=== PATIENT | male | born 1960 | race Caucasian/White ===

== ENCOUNTER 2017-02-07 07:06 | Emergency (ER) | payer BC ==
[~2017-02-07] VITALS: Ht 190.5 cm; Wt 174.1 kg
[2017-02-07 07:08] VITALS: Ht 190.5 cm; Wt 174.1 kg
--- OUTSIDE RECORDS SUMMARY | 2017-02-07 07:10 | XMS REPORT ---
Author Author Quoc Raymond Organization 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
--- OUTSIDE RECORDS SUMMARY | 2017-02-07 07:10 | XMS REPORT | Referral Summary ---
Author Author [facility] Organization [facility] Address Unknown Phone Unavailable Care Team Providers Care Corner Cutter Name Role Phone Charlie Lorenzo Primary Care Physician [phone] Encounter VC Date(s): 08/24/16 - 08/25/[address] [facility] [address] [place] [address] Discharge Disposition: 01-Home or Self Care Attending Physician: Quoc Raymond MD Admitting Physician: Quoc Raymond MD Vital Signs Most recent to 1 oldest [Reference Range]: Temperature Oral 37 degC [35.8-37.3 degC] (08/25/16 12:00 PM) Peripheral Pulse 72 bpm Rate [60-100 bpm] (08/25/16 12:00 PM) Heart Rate Monitored 66 bpm [60-100 bpm] (08/24/16 9:10 PM) Respiratory Rate 18 br/min [14-20 br/min] (08/25/16 12:00 PM) Blood Pressure 147/80 mmHg [90-140/60-90 mmHg] *HI* (08/25/16 12:00 PM) Mean Arterial 80 mmHg Pressure, Cuff (08/25/16 1:32 AM) SpO2 95 % (08/25/16 12:00 PM) Problem List Condition Effective Dates Status Health Status Informant Cardiac Active disorder(Confirmed)1 Diabetes(Confirmed) Active patient Hypertension(Confirm Active patient ed) 1Problem added automatically by system based on initiation of Cardiac Output/ Ineffective Cardiac Perfusion Plan of Care Allergies, Adverse Reactions, Alerts No Known Allergies Medications amLODIPine 10 mg oral tablet 10 mg 1 tabs, Oral, Daily, 0 Refill(s) Start Date: 08/24/16 Status: Ordered aspirin 81 mg oral tablet 81 mg 1 tabs, Oral, Daily, 0 Refill(s) Start Date: 08/25/16 Status: Ordered atenolol 50 mg oral tablet 50 mg 1 tabs, Oral, Daily, # 30 tabs, 5 Refill(s) Start Date: 08/25/16 Status: Ordered citalopram 20 mg oral tablet 20 mg 1 tabs, Oral, Bedtime (once a day), 0 Refill(s) Start Date: 08/25/16 Status: Ordered glyBURIDE 5 mg oral tablet 10 mg 2 tabs, Oral, BID, 0 Refill(s) Start Date: 08/25/16 Status: Ordered Levemir FlexTouch 100 units/mL subcutaneous solution 32 units, SubCutaneous, Bedtime (once a day), 0 Refill(s) Start Date: 08/24/16 Status: Ordered Lipitor 20 mg oral tablet 20 mg 1 tabs, Oral, Bedtime (once a day), # 30 tabs, 3 Refill(s) Start Date: 08/25/16 Status: Ordered lisinopril 20 mg oral tablet 20 mg 1 tabs, Oral, BID, 0 Refill(s) Start Date: 08/24/16 Status: Ordered Maxzide-25 oral tablet 1 tabs, Oral, Daily, # 30 tabs, 5 Refill(s) Start Date: 08/25/16 Status: Ordered metFORMIN extended release 1,000 mg, Oral, BID, 0 Refill(s) Start Date: 08/24/16 Status: Ordered multivitamin CATALYN multivitamin CATALYN, See Instructions, 3 tabs once a day, 0 Refill(s) Start Date: 08/24/16 Status: Ordered nitroglycerin 0.4 mg sublingual tablet 0.4 mg 1 tabs, SubLingual, q5min, as needed for chest pain, # 25 tabs, 3 Refill( s) Start Date: 08/25/16 Status: Ordered NovoLOG FlexPen 8 units, SubCutaneous, TIDAC, 0 to 8 units depend on meals, 0 Refill(s) Start Date: 08/24/16 Status: Ordered pioglitazone 15 mg oral tablet 15 mg 1 tabs, Oral, Daily, 0 Refill(s) Start Date: 08/24/16 Status: Ordered Results Hematology Most recent to 1 oldest [Reference Range]: WBC [4.8-10.8 10.8 10*3/uL 10*3/uL] (08/24/16 1:32 PM) RBC [4.60-6.20] 4.35 *LOW* (08/24/16 1:32 PM) Hgb [14.0-18.0 13.1 gm/dL gm/dL] *LOW* (08/24/16 1:32 PM) Hct [42.0-52.0 %] 38.1 % *LOW* (08/24/16 1:32 PM) MCV [82.0-99.0 fL] 87.6 fL (08/24/16 1:32 PM) MCH [27.0-32.0 pg] 30.1 pg (08/24/16 1:32 PM) MCHC [32.0-36.0 34.4 gm/dL gm/dL] (08/24/16 1:32 PM) RDW [11.5-14.5 %] 13.0 % (08/24/16 1:32 PM) Platelet [150-400 382 10*3/uL 10*3/uL] (08/24/16 1:32 PM) MPV [9.4-12.3 fL] 9.8 fL (08/24/16 1:32 PM) Immature 0.3 % Granulocytes (08/24/16 1:32 PM) [0.0-1.0 %] Neutrophils [51-75 66 % %] (08/24/16 1:32 PM) Lymphocytes [20-46 25 % %] (08/24/16 1:32 PM) Monocytes [4-11 %] 7 % (08/24/16 1:32 PM) Eosinophils [0-4 %] 2 % (08/24/16 1:32 PM) Basophils [0-2 %] 0 % (08/24/16 1:32 PM) Neutro Absolute 7.09 10*3 [1.90-7.00 10*3] *HI* (08/24/16 1:32 PM) Lymph Absolute 2.68 10*3 [0.80-3.30 10*3] (08/24/16 1:32 PM) [place] Absolute 0.71 10*3 [0.30-1.00 10*3] (08/24/16 1:32 PM) Eos Absolute 0.25 10*3 [0.00-0.50 10*3] (08/24/16 1:32 PM) Baso Absolute 0.04 10*3 [0.00-0.20 10*3] (08/24/16 1:32 PM) Nucleated RBC 0.0 /100 WBC Automated [0 /100 (08/24/16 1:32 PM) WBC] Coagulation Most recent to 1 oldest [Reference Range]: INR [0.9-1.2] 1.0 (08/24/16 1:32 PM) Chemistry Most recent to 1 oldest [Reference Range]: Sodium Lvl [136-144 140 mEq/L mEq/L] (08/24/16 1:32 PM) Potassium Lvl 3.7 mEq/L [3.6-5.1 mEq/L] (08/24/16 1:32 PM) Chloride [99-109 103 mEq/L mEq/L] (08/24/16 1:32 PM) CO2 [22-32 mEq/L] 28 mEq/L (08/24/16 1:32 PM) AGAP [3-20] 9 (08/24/16 1:32 PM) BUN [4-20 mg/dL] 10 mg/dL (08/24/16 1:32 PM) Glucose Lvl [70-100 111 mg/dL mg/dL] *HI* (08/24/16 1:32 PM) Creatinine Lvl 0.90 mg/dL [0.64-1.27 mg/dL] (08/24/16 1:32 PM) eGFR [>60] >60 1 (08/24/16 1:32 PM) Calcium Lvl 8.7 mg/dL [8.6-10.0 mg/dL] (08/24/16 1:32 PM) Albumin Lvl [3.5-4.8 3.3 gm/dL gm/dL] *LOW* (08/24/16 1:32 PM) Total Protein 6.4 gm/dL [6.1-7.9 gm/dL] (08/24/16 1:32 PM) Globulin [1.9-4.3 3.1 gm/dL gm/dL] (08/24/16 1:32 PM) ALT [17-63 U/L] 18 U/L (08/24/16 1:32 PM) AST [15-41 U/L] 23 U/L (08/24/16 1:32 PM) Alk Phos [26-104 70 U/L U/L] (08/24/16 1:32 PM) Bili Total [0.2-1.2 0.5 mg/dL 2 mg/dL] (08/24/16 1:32 PM) Troponin [<0.06 <0.05 ng/mL ng/mL] (08/24/16 7:15 PM) Lipase Lvl [8-48 17 U/L U/L] (08/24/16 1:32 PM) Blood Glucose, 89 mg/dL Capillary [70-100 (08/25/16 2:57 PM) mg/dL] Chol [0-200 mg/dL] 166 mg/dL (08/25/16 6:13 AM) Trig [0-150 mg/dL] 228 mg/dL *HI* (08/25/16 6:13 AM) HDL [>40 mg/dL] 30 mg/dL *ABN* (08/25/16 6:13 AM) LDL [0-100 mg/dL] 90 mg/dL (08/25/16 6:13 AM) VLDL Cholesterol 46 mg/dL [0-30 mg/dL] *HI* (08/25/16 6:13 AM) Cardiac Risk 5.5 [0.0-5.7] (08/25/16 6:13 AM) 1Result Comment: Multiply eGFR results by 1.21 for race. 2Result Comment: Naproxen, specifically the metabolite O-desmethylnaproxen, may cause spurious elevation in Total Bilirubin levels. Immunizations No data available for this section Procedures Procedure Date Related Diagnosis Body Site Catheterization Left Heart with Coronary 08/24/16 Angiography (Right, Groin)1 1auto-populated from documented surgical case Social History Social History Type Response Smoking Status Never smoker Assessment and Plan No data available for this section
--- OUTSIDE RECORDS SUMMARY | 2017-02-07 07:10 | XMS REPORT ---
Author Author [facility]. Organization [facility] Address [address] [place] [address] Phone [phone] Summary purpose CCDA Sent to NYE Chief Complaint and Reason for Visit No authorized Reason for Visit (Admitting Diagnosis) is available for this visit. Problem list No authorized problems tracked for continuity of care are available for this visit. Encounters No authorized problems tracked for encounter diagnoses are available for this visit. Medications No medications recorded for this patient visit Allergies, adverse reactions, alerts No allergy information is available for this patient. Immunizations No immunizations recorded for this patient visit Relevant diagnostic tests and/or laboratory data RESULTS Chemistry Group [id number] Result Normal Range Units Sodium 138 134-145 mmol/L Potassium 5.0 3.6-5.0 mmol/L Chloride 100 98-107 mmol/L CO2 26 22-30 mmol/L Glucose H 226 75-110 mg/dl BUN 20 9-20 mg/dl Creatinine L .74 0.8-1.7 mg/dl Calcium 8.7 8.4-10.2 mg/dl History of procedures No procedures recorded for this patient visit. Functional status No functional or cognitive status observations are available for this visit. Vital signs No authorized vital signs are available for this visit. Social history No Social History or smoking status observations were recorded for this visit. ( Unknown if ever smoked.) Treatment Plan No treatment plan text is available for this visit. Hospital discharge instructions No discharge instruction text is available for this visit.
--- OUTSIDE RECORDS SUMMARY | 2017-02-07 07:11 | XMS REPORT ---
Author Author [facility] Organization [facility] Address [address] [place] [address] Phone [phone] Summary purpose CCDA Sent to PRE Chief Complaint and Reason for Visit No [...] tests and/or laboratory data RESULTS Chemistry Group [id number]:00 Result Normal Range Units Sodium 141 134-145 mmol/L Potassium HC 5.9 3.6-5.0 mmol/L SAMPLE HEMOLYZED 1+.RESULT CALLED TO NILS AT 17:00 11-30-16 BY LAD Chloride H 108 98-107 mmol/L CO2 24 22-30 mmol/L Glucose 85 75-110 mg/dl BUN H 36 9-20 mg/dl Creatinine 1.40 0.8-1.7 mg/dl eGFR 52 ml/min. Total Protein 7.2 6.3-8.2 g/dl Albumin 3.7 3.5-5.0 g/dl Calcium 9.6 8.4-10.2 mg/dl Alk Phos 85 38-126 U/L AST 17 14-36 U/L ALT 24 11-66 U/L T Bili .6 0.2-1.3 mg/dl A/G Ratio 1.1 Ratio Cholesterol L 129 130-170 mg/dl Triglyceride 124 < 200 mg/dl HDL L 37 40-60 mg/dl LDL Levy 67 30-100 mg/dl VLDL 25 0 Chol/HDL 3.46 0.00-5.00 Ratio History of procedures Procedure Code Code Type Description Date Performed Performing Physician 15523 CPT-4 COMPREHEN METABOLIC PANEL 11-30-2016 KANDACE ADAMS 31089 CPT-4 LIPID PANEL 11-30-2016 KANDACE ADAMS Functional status No functional or cognitive status [...]
--- OUTSIDE RECORDS SUMMARY | 2017-02-07 07:11 | XMS REPORT | Continuity of Care Document ---
Author Author [facility] Organization [facility] Address Unknown Phone Unavailable Allergies Active Description Code Type Severity Reaction Onset Reported/Identified Relationship to Patient Clinical Status Yes NKDA N/A N/A Yes No Known Drug Allergies No Known Drug Allergies Drug Allergy Unknown N/A 04/28/2001 Yes coffee (Coffea arabica) coffee ( Coffea arabica) Drug Allergy Moderate DIARRHEA 09/09/2016 Yes egg egg Drug Allergy Moderate DIARRHEA 09/09/2016 Yes No Known Drug Intolerances No Known Drug Intolerances Drug Allergy Unknown UNKNOWN 09/09/2016 Medications Problems Date Dx Coded Attending Type Code Diagnosis Diagnosed By 01/04/2016 KANDACE ADAMS MD 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 01/04/2016 KANDACE ADAMS MD I10 Essential (primary) hypertension 01/24/2016 KANDACE ADAMS MD I10 Essential (primary) hypertension 03/30/2016 KANDACE ADAMS MD I10 Essential (primary) hypertension 05/21/2016 KANDACE ADAMS MD E11.9 Type 2 diabetes mellitus without complications 05/21/2016 KANDACE ADAMS MD I10 Essential (primary) hypertension 09/10/2016 Quoc Raymond MD E11.9 TYPE 2 DIABETES MELLITUS WITHOUT COMPLICATIONS 09/10/2016 Quoc Raymond MD E78.5 HYPERLIPIDEMIA, UNSPECIFIED 09/10/2016 Quoc Raymond MD I10 ESSENTIAL (PRIMARY) HYPERTENSION 09/10/2016 Quoc Raymond MD I25.110 ATHSCL HEART DISEASE OF [place] COR ART W UNSTABLE 09/10/2016 Quoc Raymond MD I25.84 CORONARY ATHEROSCLEROSIS DUE TO CALCIFIED CORONARY 09/10/2016 Quoc Raymond MD Z82.49 FAMILY HX OF ISCHEM HEART DIS AND OTH DIS OF THE C 11/30/2016 KANDACE ADAMS MD I25.10 Athscl heart disease of [place] coronary artery w/o ang pctrs Procedures Code Description [place] [address] COMPREHEN METABOLIC PANEL KANDACE ADAMS MD 01/04/2016 09749 ASSAY THYROID STIM HORMONE KANDACE ADAMS MD 01/04/2016 83651 COMPLETE CBC, AUTOMATED KANDACE ADAMS MD 01/04/2016 44156 METABOLIC PANEL TOTAL CA KANDACE ADAMS MD 01/24/2016 29933 METABOLIC PANEL TOTAL CA KANDACE ADAMS MD 03/30/2016 77065 COMPREHEN METABOLIC PANEL KANDACE ADAMS MD 05/21/2016 [id number] DILATION OF 1 COR ART WITH DRUG-ELUT INTRA, Quoc Davis MD 09/10/2016 [id number] INTRODUCE OTH THERAP SUBST IN PERIPH VEIN, Quoc Jennings MD 09/10/2016 [id number] MEASURE OF CARDIAC SAMPL PRESSURE, L HEART, Quoc Jennings MD 09/10/2016 [id number] FLUOROSCOPY OF MULT COR ART USING L OSM CONTRAST Quoc Raymond MD 09/10/2016 [id number] FLUOROSCOPY OF LEFT HEART USING LOW OSMOLAR CONTRA Quoc Raymond MD 09/10/2016 37858 COMPREHEN METABOLIC PANEL KANDACE ADAMS MD 11/30/2016 98548 LIPID PANEL KANDACE ADAMS MD 11/30/2016 Results Test Result Range Comprehensive Metabolic Panel - 01/04/16 10:28 Sodium 140 MMOLL 134-145 Potassium 5.0 MMOLL 3.6-5.0 Chloride 98 MMOLL 98-107 CO2 29 MMOLL 22-30 Glucose 152 MG/DL 75-110 BUN 19 MG/DL 9-20 Creatinine .87 MG/DL 0.8-1.7 Calcium 8.9 MG/DL 8.4-10.2 T Bili .5 MG/DL 0.2-1.3 T. Protein 6.6 G/DL 6.3-8.2 A/G Ratio 1.2 RATIO Albumin 3.6 G/DL 3.5-5.0 Alk Phos 93 U/L 38-126 ALT 28 U/L 11-66 AST 21 U/L 14-36 CBC - 01/04/16 10:28 Eos # 0.33 x10^3 0-0.5 Eos % 3.6 % 0-4 HCT 39.6 % 42.0-52.0 HGB 13.8 G/DL 14.0-18.0 Lymph # 1.90 x10^3 1.0-4.0 Lymph % 20.9 % 20-50 MCH 30.3 PG 27.0-31.0 MCHC 34.8 G/DL 32.0-36.0 MCV 86.8 FL 80-94 Curry # 0.87 x10^3 0.0-0.8 Curry % 9.6 % 1.0-9.0 MPV 10.1 FL 6.0-10.0 Platelet 401 x10^3 150-400 RBC 4.56 x10^3 4.60-6.20 RDW 12.9 % 12-15 WBC 9.09 x10^3 5.8-10.8 Baso # 0.06 x10^3 0-0.2 Baso % 0.7 % 0-2 Neut % 65.2 % 50-70 Neut # 5.93 x10^3 3.0-7.0 TSH - 01/06/16 08:51 TSH 1.88 UIUML 0.50-6.00 Basic Metabolic Panel - 01/24/16 14:16 Sodium 138 MMOLL 134-145 Potassium 5.0 MMOLL 3.6-5.0 Chloride 100 MMOLL 98-107 CO2 26 MMOLL 22-30 Glucose 226 MG/DL 75-110 BUN 20 MG/DL 9-20 Creatinine .74 MG/DL 0.8-1.7 Calcium 8.7 MG/DL 8.4-10.2 Basic Metabolic Panel - 03/30/16 14:33 Sodium 139 MMOLL 134-145 Potassium 4.6 MMOLL 3.6-5.0 Chloride 98 MMOLL 98-107 CO2 26 MMOLL 22-30 Glucose 253 MG/DL 75-110 BUN 23 MG/DL 9-20 Creatinine .80 MG/DL 0.8-1.7 Calcium 9.1 MG/DL 8.4-10.2 Comprehensive Metabolic Panel - 05/21/16 12:05 Sodium 142 MMOLL 134-145 Potassium 4.9 MMOLL 3.6-5.0 Chloride 100 MMOLL 98-107 CO2 29 MMOLL 22-30 Glucose 105 MG/DL 75-110 BUN 21 MG/DL 9-20 Creatinine .82 MG/DL 0.8-1.7 Calcium 9.0 MG/DL 8.4-10.2 T Bili .5 MG/DL 0.2-1.3 T. Protein 6.7 G/DL 6.3-8.2 A/G Ratio 1.1 RATIO Albumin 3.5 G/DL 3.5-5.0 Alk Phos 76 U/L 38-126 ALT 15 U/L 11-66 AST 19 U/L 14-36 EGFR 98 MLMIN GLUCOSE (POC) - 09/09/16 17:11 GLUCOSE (POC) 236 mg/dL 70-99 TROPONIN I - 09/09/16 17:32 TROPONIN I < 0.02 ng/mL < 0.07 CBC - 09/09/16 17:32 MEAN CELL HGB 29.8 pg 27.0-33.0 MEAN CELL HGB CONCENTRATION 34.8 g/dL 32.0-37.0 MEAN CELL VOLUME 85.8 fl 80.0-100.0 RED BLOOD CELL 4.59 m/cumm 4.00-6.00 RED CELL DISTRIBUTION WIDTH 12.7 % 11.0- 15.6 WHITE BLOOD CELL 11.4 k/cumm 5.0-10.0 HEMOGLOBIN 13.7 gm/dL 14.0-18.0 HEMATOCRIT 39.4 % 40.0-54.0 PLATELET COUNT 415 k/cumm 150-400 METABOLIC PANEL, BASIC - 09/09/16 17:32 POTASSIUM 4.6 mmol/L 3.5-5.3 EST GFR (MDRD) 57 mL/min > 59 ANION GAP 6 mmol/L 5-15 EST CrCl (CG) > 60 mL/min > 59 GLUCOSE 243 mg/dL 70-99 CALCIUM 8.9 mg/dL 8.5-10.1 BLOOD UREA NITROGEN 29 mg/dL 7-20 CREATININE 1.3 mg/dL 0.7-1.3 SODIUM 138 mmol/L 135-148 CHLORIDE 104 mmol/L 98-110 CARBON DIOXIDE 28 mmol/L 21-32 GLUCOSE (POC) - 09/09/16 21:56 GLUCOSE (POC) 192 mg/dL 70-99 TROPONIN I - 09/10/16 04:09 TROPONIN I < 0.02 ng/mL < 0.07 GLUCOSE (POC) - 09/10/16 06:04 GLUCOSE (POC) 140 mg/dL 70-99 GLUCOSE (POC) - 09/10/16 10:06 GLUCOSE (POC) 180 mg/dL -99 GLUCOSE (POC) - 09/10/16 12:41 GLUCOSE (POC) 202 mg/dL GLUCOSE (POC) - 09/10/16 17:49 GLUCOSE (POC) 198 mg/dL GLUCOSE (POC) - 09/10/16 21:37 GLUCOSE (POC) 173 mg/dL 70-99 CBC - 09/11/16 05:06 MEAN CELL HGB 29.6 pg 27.0-33.0 MEAN CELL HGB CONCENTRATION 34.1 g/dL 32.0-37.0 MEAN CELL VOLUME 87.0 fl 80.0-100.0 RED BLOOD CELL 4.69 m/cumm 4.00-6.00 RED CELL DISTRIBUTION WIDTH 12.7 % 11.0- 15.6 WHITE BLOOD CELL 10.6 k/cumm 5.0-10.0 HEMOGLOBIN 13.9 gm/dL 14.0-18.0 HEMATOCRIT 40.8 % 40.0-54.0 PLATELET COUNT 385 k/cumm 150-400 METABOLIC PANEL, COMPREHN - 09/11/16 05:06 POTASSIUM 4.7 mmol/L 3.5-5.3 EST GFR (MDRD) > 60 mL/min > 59 ANION GAP 5 mmol/L 5-15 EST CrCl (CG) > 60 mL/min > 59 GLUCOSE 138 mg/dL 70-99 CALCIUM 8.6 mg/dL 8.5-10.1 BLOOD UREA NITROGEN 19 mg/dL 7-20 CREATININE 1.1 mg/dL 0.7-1.3 SODIUM 137 mmol/L 135-148 CHLORIDE 103 mmol/L 98-110 AST/SGOT 14 Units/L 10-37 ALT/SGPT 22 Units/L < 66 CARBON DIOXIDE 29 mmol/L 21-32 TOTAL PROTEIN 7.2 gm/dL 6.4-8.2 ALBUMIN 3.3 gm/dL 3.4-5.0 BILI TOTAL 0.3 mg/dL 0.0-1.0 ALKALINE PHOSPHATASE TOTAL 73 IU/L 45- 117 LIPID PANEL - 09/11/16 05:06 CHOLESTEROL/HDL RATIO 4.0 < 5.0 LDL CHOLESTEROL 90 mg/dL < 100 VLDL CHOLESTEROL 27 mg/dL < 30 TRIGLYCERIDES 134 mg/dL < 150 CHOLESTEROL 156 mg/dL < 200 HDL CHOLESTEROL 39 mg/dL > 39 GLUCOSE (POC) - 09/11/16 06:55 GLUCOSE (POC) 148 mg/dL 70-99 GLUCOSE (POC) - 09/11/16 12:08 GLUCOSE (POC) 142 mg/dL 70-99 Comprehensive Metabolic Panel - 11/30/16 17:02 Sodium 141 MMOLL 134-145 Potassium 5.9 MMOLL 3.6-5.0 Chloride 108 MMOLL 98-107 CO2 24 MMOLL 22-30 Glucose 85 MG/DL 75-110 BUN 36 MG/DL 9-20 Creatinine 1.40 MG/DL 0.8-1.7 Calcium 9.6 MG/DL 8.4-10.2 T Bili .6 MG/DL 0.2-1.3 T. Protein 7.2 G/DL 6.3-8.2 A/G Ratio 1.1 RATIO Albumin 3.7 G/DL 3.5-5.0 Alk Phos 85 U/L 38-126 ALT 24 U/L 11-66 AST 17 U/L 14-36 EGFR 52 MLMIN Lipid Profile - 11/30/16 17:02 HDL 37 MG/DL 40-60 LDL Calculated 67 MG/DL 30-100 Triglyceride 124 MG/DL < 200 VLDL 25 Chol/HDL 3.46 RATIO 0.00-5.00 Cholesterol 129 MG/DL 130-170 Encounters ACCT No. Visit Date/Time Discharge Status Pt. Type Provider Facility Loc./Unit Complaint [id number] 09/10/2016 17:23:00 2015 14:10:00 DIS Inpatient Mandi CARABALLO, Quoc [place] [id number]
--- OUTSIDE RECORDS SUMMARY | 2017-02-07 07:11 | XMS REPORT ---
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
--- OUTSIDE RECORDS SUMMARY | 2017-02-07 07:11 | XMS REPORT | Summary of Care ---
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) Status: Active Diabetes (250.00, E11.9) Status: Active Hypertension (401.9, I10) Status: Active Obstructive sleep apnea of adult (327.23, G47.33) Status: Active Medications Name Dates Details MetFORMIN HCl ER 500 MG Oral Tablet Extended Release 24 Hour Luke Jarrell M.D.* Started 21-Jan-2016 ActiveGlyBURIDE 5 MG Oral Tablet * Refills: 0 Luke Jarrell M.D.* Started 21-Jan-2016 ActiveNovoLIN 70/30 (70-30) 100 UNIT/ML Subcutaneous Suspension 11 UNITS 3 TIMES A DAY * Refills: 0 Luke Jarrell M.D.* Started 21-Jan-2016 ActiveLevemir 100 UNIT/ML Subcutaneous Solution 34 units at bedtime * Refills: 0 Luke Jarrell M.D.* Started 21-Jan-2016 ActiveLisinopril 20 MG Oral Tablet * Refills: 0 Luke Jarrell M.D.* Started 21-Jan-2016 ActiveCitalopram Hydrobromide 20 MG Oral Tablet * Refills: 0 Luke Jarrell M.D.* Started 21-Jan-2016 ActiveAspirin 81 MG TABS * Refills: 0 Luke Jarrell M.D.* Started 21-Jan-2016 Active Allergies and Adverse Reactions Name Dates Details No Known Drug Allergies Status: Active Procedures Procedure Dates Details History of Ankle Surgery Other (for Billing purposes only) 1150 Ordered:30-Mar-2016 Immunization Name Dates Details Immunizations not documented Family History Unknown Family Member* Name Dates Details Family history of hypertension (V17.49, Z82.49) Comments: Family History Status: Active Mother* Name Dates Details Family history of diabetes mellitus (V18.0, Z83.3) Status: Active Father* Name Dates Details Family history of cardiac disorder (V17.49, Z82.49) Status: Active Sister* Name Dates Details Family history of thyroid disease (V18.19, Z83.49) Status: Active Brother* Name Dates Details Family history of thyroid disease (V18.19, Z83.49) Status: Active Social History Smoking Status* Unknown if ever smoked Vital Signs Date Test Result Details No Known Vitals to report Results Date Description Value Details Results not documented Plan of Care Planned Observations* Name Dates Details Planned Goals not documented Goal Instructions * Instructions not documented Encounters Appointment; Laine Frank Encounter Diagnosis: Problem not documented On 30-Mar-2016 14:49 Appointment; Luke Jarrell Encounter Diagnosis: Problem not documented On 21-Jan-2016 15:30 Appointment; Seble Harvey Encounter Diagnosis: Problem not documented On 30-Mar-2014 11:45
--- OUTSIDE RECORDS SUMMARY | 2017-02-07 07:11 | XMS REPORT | Summary of Care ---
Author Author Laine Frank APRN Unknown Address [address], [place] [id number] Phone Unavailable Care Team Providers Care Lead Pastor Name Role Phone Chrystal Walsh, Berenice Unavailable [...] Ankle Surgery Other (for Billing purposes only) 7297 Ordered:30-Mar-2016 Immunization Name Dates Details Immunizations not [...] smoked Vital Signs Date Test Result Details 30-Mar-2016 15:33 BP Systolic 196 mm[Hg] Status: BP Diastolic 103 mm[Hg] Status: Results Date Description Value Details 30-Mar-2016 14:50 Urinalysis, Chemistries Only ([facility] only) 8017 pH 6.0 (Better) Range: 5.0-7.5 SP GRAVITY 1.015 (Better) Range: 1.010-1.030 APPEARANCE Clear (Better) Range: Clear COLOR Yellow (Better) Range: Straw-Yellow PROTEIN Negative mg/dL (Better) Range: Negative-Trace GLUCOSE 1000 mg/dL (Abnormal) Range: Negative KETONES Negative mg/dL (Better) Range: Negative BILIRUBIN Negative (Better) Range: Negative BLOOD Negative (Better) Range: Negative UROBIL 0.2 EU/dL (Better) Range: 0.2-1.0 NITRITE Negative (Better) Range: Negative LEUKOCYTES Negative (Better) Range: Negative Plan of Care Planned Observations* Name Dates Details Planned Goals not documented Goal Instructions * Instructions not documented Encounters Appointment; Laine Frank Encounter Diagnosis: Problem not documented On 30-Mar-2016 14:49 Appointment; Luke Jarrell Encounter Diagnosis: Problem not documented On 21-Jan-2016 15:30 Appointment; Seble Harvey Encounter Diagnosis: Problem not documented On 30-Mar-2014 11:45
--- OUTSIDE RECORDS SUMMARY | 2017-02-07 07:11 | XMS REPORT | Summary of Care ---
Author Author Laine Frank APRN Unknown Address [address] [place], [place] [id number] Phone Unavailable Care Team Providers Care It Support Manager Name Role Phone Chrystal Walsh, O Unavailable Unavailable Angelique Lorenzo PP Unavailable Functional Status Functional Status Health Issues* Name Dates Details Functional status health issues are not documented Status: Cognitive Status Health Issues* Name Dates Details Cognitive status health issues are not documented Status: Problems Name Dates Details Diabetes (250.00, E11.9) Status: Active Hypertension (401.9, I10) Status: Active Obstructive sleep apnea of adult (327.23, G47.33) Status: Active 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
--- OUTSIDE RECORDS SUMMARY | 2017-02-07 07:11 | XMS REPORT ---
Author Author [facility]. Organization [facility] Address [address] [place] [address] Phone [phone] Summary purpose CCDA Sent to AKE Chief Complaint and Reason for Visit No [...] Relevant diagnostic tests and/or laboratory data RESULTS CBC :18:00 Result Normal Range Units WBC 9.09 5.8-10.8 x103/mm3 Neutrophil % 65.2 50-70 % Lymph % 20.9 20-50 % [place] % H 9.6 1.0-9.0 % Eosinophil % 3.6 0-4 % Basophil % 0.7 0-2 % Neutrophil # 5.93 3.0-7.0 x103/mm3 Lymph # 1.90 1.0-4.0 x103/mm3 [place] # H 0.87 0.0-0.8 x103/mm3 Eosinophil # 0.33 0-0.5 x103/mm3 Basophil # 0.06 0-0.2 x103/mm3 RBC L 4.56 4.60-6.20 x103/mm3 HGB L 13.8 14.0-18.0 g/dl HCT L 39.6 42.0-52.0 % MCV 86.8 80-94 FL MCH 30.3 27.0-31.0 pg MCHC 34.8 32.0-36.0 g/dl RDW 12.9 12-15 % Platelet H 401 150-400 x103/mm3 MPV H 10.1 6.0-10.0 FL Chemistry Group :18:00 Result Normal Range Units Sodium 140 134-145 mmol/L Potassium 5.0 3.6-5.0 mmol/L Chloride 98 98-107 mmol/L CO2 29 22-30 mmol/L Glucose H 152 75-110 mg/dl BUN 19 9-20 mg/dl Creatinine .87 0.8-1.7 mg/dl Total Protein 6.6 6.3-8.2 g/dl Albumin 3.6 3.5-5.0 g/dl Calcium 8.9 8.4-10.2 mg/dl Alk Phos 93 38-126 U/L AST 21 14-36 U/L ALT 28 11-66 U/L T Bili .5 0.2-1.3 mg/dl A/G Ratio 1.2 Ratio Special Chemistry Group [id number]:18:00 Result Normal Range Units TSH 1.88 0.50-6.00 uIU/mL History of procedures Procedure Code Code Type Description Date Performed Performing Physician 87110 CPT-4 COMPREHEN METABOLIC PANEL 01-04-2016 KANDACE ADAMS 75092 CPT-4 COMPLETE CBC, AUTOMATED 01-04-2016 KANDACE ADAMS 01564 CPT-4 ASSAY THYROID STIM HORMONE 01-04-2016 KANDACE ADAMS Functional status No functional or [...]
--- OUTSIDE RECORDS SUMMARY | 2017-02-07 07:11 | XMS REPORT | Summary of Care ---
Author Author Luke Jarrell M.D. Organization Unknown Address [address] [place], [place] [id number] Phone Unavailable Care Team Providers Care Tv Host Name Role Phone Chrystal Walsh, O Unavailable [...] Jarrell M.D.* Started 21-Jan-2016 ActiveAspirin 81 MG Oral Tablet * Refills: 0 Luke Jarrell M.D.* Started 21-Jan-2016 Active Allergies and Adverse Reactions Name Dates Details No Known Drug Allergies Status: Active Procedures Procedure Dates Details History of Ankle Surgery Procedures not documented Immunization Name Dates Details Immunizations not documented [...] smoked Vital Signs Date Test Result Details 21-Jan-2016 15:07 BP Systolic 162 mm[Hg] Status: BP Diastolic 78 mm[Hg] Status: Heart Rate 84 /min Status: Height 74 in Status: Weight 367 lb Status: O2 SAT 98 % Status: Body Mass Index Calculated 47.12 kg/m2 Status: Body Surface Area Calculated 2.81 m2 Status: Results Date Description Value Details Results not documented Plan of Care Planned Observations* Name Dates Details Planned Goals not documented Goal Instructions * Instructions not documented Encounters Appointment; Luke Jarrell Encounter Diagnosis: Problem not documented On 21-Jan-2016 15:30 Appointment; Seble Harvey Encounter Diagnosis: Problem not documented On 30-Mar-2014 11:45
--- OUTSIDE RECORDS SUMMARY | 2017-02-07 07:12 | XMS REPORT ---
Author Author [facility]. Organization [facility] Address [address] [place] [address] Phone [phone] Summary purpose CCDA Sent to [facility] Chief Complaint and Reason for Visit No [...] tests and/or laboratory data RESULTS Chemistry Group [id number]:00 Result Normal Range Units Sodium 139 134-145 mmol/L Potassium 4.6 3.6-5.0 mmol/L Chloride 98 98-107 mmol/L CO2 26 22-30 mmol/L Glucose H 253 75-110 mg/dl BUN H 23 9-20 mg/dl Creatinine .80 0.8-1.7 mg/dl Calcium 9.1 8.4-10.2 mg/dl History of procedures Procedure Code Code Type Description Date Performed Performing Physician 90180 CPT-4 METABOLIC PANEL TOTAL CA 03-30-2016 KANDACE ADAMS Functional status No functional or [...]
--- OUTSIDE RECORDS SUMMARY | 2017-02-07 07:12 | XMS REPORT ---
Author Author [facility]. Organization [facility] Address [address] [place] [address] Phone [phone] Summary purpose CCDA Sent to PAE Chief Complaint and Reason for Visit No [...] tests and/or laboratory data RESULTS Chemistry Group [id number]:00:00 Result Normal Range Units Sodium 142 134-145 mmol/L Potassium 4.9 3.6-5.0 mmol/L Chloride 100 98-107 mmol/L CO2 29 22-30 mmol/L Glucose 105 75-110 mg/dl BUN H 21 9-20 mg/dl Creatinine .82 0.8-1.7 mg/dl eGFR 98 ml/min. Total Protein 6.7 6.3-8.2 g/dl Albumin 3.5 3.5-5.0 g/dl Calcium 9.0 8.4-10.2 mg/dl Alk Phos 76 38-126 U/L AST 19 14-36 U/L ALT 15 11-66 U/L T Bili .5 0.2-1.3 mg/dl A/G Ratio 1.1 Ratio History of procedures No procedures recorded for [...]
--- OUTSIDE RECORDS SUMMARY | 2017-02-07 07:12 | XMS REPORT ---
Author Author Quoc Raymond Organization [employer] Address Unknown Phone Unavailable Care Team Providers Care Preventive Maintenance Coordinator Name Role Phone Quoc Raymond CP Unavailable Allergies No Known Allergies Problems Problem Type Condition Code Onset Dates Condition Status Problem CAD (coronary artery disease) I25.10 Active Medications No Known Medications Results No Known Results Summary Purpose [employer] Submission
--- OUTSIDE RECORDS SUMMARY | 2017-02-07 07:12 | XMS REPORT ---
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 408652034 Problem Diabetes type 2, controlled E11.9 Active 970408576 Problem Chest pain R07.9 Active 51341694 Problem Hypertension I10 Active 04083136 Problem Long-term use of aspirin therapy Z79.82 Active 160239164872834 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
--- OUTSIDE RECORDS SUMMARY | 2017-02-07 07:12 | XMS REPORT ---
Author Author Quoc Raymond Organization [employer] Address Unknown Phone Unavailable Care Team Providers Care Credit Rating Checker Name Role Phone Quoc Raymond CP Unavailable Allergies No Known Allergies Problems Problem Type Condition Code Onset Dates Condition Status Problem CAD (coronary artery disease) I25.10 Active Medications No Known Medications Results No Known Results Summary Purpose [employer] Submission
--- NOTE | 2017-02-07 07:20 | NUR ---
PROVIDER DR. CAO IN ROOM WITH PT.
--- NOTE | 2017-02-07 07:40 | NUR ---
XRAY/CT PT TO XRAY/CT PER COT. Addendum: 02/07/17 at 0817 by EALICIR RN TO AND FROM CT/XRAY WITH PT. HEAD STABLIZED WITH ALL TRANSFERS TO COT AND BACK. NEUROS REMAIN INTACT X4 PRIOR TO AND FOLLOWING ALL MOVEMENT.
--- NOTE | 2017-02-07 08:04 | NUR ---
PAIN RE-ASSESSMENT/PROVIDER PT HAS INCREASED PAIN WITH C-COLLAR ON, NOW A "STRONG 9/10". NEUROS INTACT X4, C-SPINE IN ALLIGNMENT. PT IS ADVISED THAT C-COLLAR WILL BE REMOVED SOON CT IS CLEAR. REQUESTED PAIN MEDICATIONS FOR PT FROM DR. CAO. DR. CAO ADVISED PT IS UNABLE TO HAVE PAIN MEDICATIONS UNTIL AFTER CT RESULTS. PT ADVISED.
--- NOTE | 2017-02-07 08:04 | NUR ---
CT PT RETURNED FROM CT.
[2017-02-07] MEDS ORDERED: RANI150T7 PO (08:19)
[2017-02-07] MEDS ORDERED: METF-462 PO (08:20)
[2017-02-07] MEDS ORDERED: GLYB5TAB8 PO (08:21)
[2017-02-07] MEDS ORDERED: PIOGLITAZONE PO (08:22)
[2017-02-07] MEDS ORDERED: INSU100C6 SQ (08:22)
--- NOTE | 2017-02-07 08:22 | DI ---
Indication: ITS.REASON: Right shoulder pain after fall yesterday PROCEDURE: SHOULDER RIGHT 3 VIEWS: Encounter: Initial Comparison: None Findings: There is no acute fracture, dislocation or malalignment identified. Small calcification adjacent to the greater tuberosity could be due to prior calcific tendinitis. Mild degenerative change in the acromioclavicular and glenohumeral joints. Small loose body seen in the inferior glenohumeral joint recess. Impression: No acute osseous abnormality. .
--- OUTSIDE RECORDS SUMMARY | 2017-02-07 08:22 | XMS REPORT | Continuity of Care Document ---
[...] Raymond MD I25.110 ATHSCL HEART DISEASE OF [place] ART W UNSTABLE 09/10/2016 Quoc Raymond MD I25.84 CORONARY ATHEROSCLEROSIS DUE TO CALCIFIED CORONARY 09/10/2016 Quoc Raymond MD Z82.49 FAMILY HX OF ISCHEM HEART DIS AND OTH DIS OF THE C 11/30/2016 KANDACE ADAMS MD I25.10 Athscl heart disease of [place] coronary artery w/o ang pctrs Procedures Code Description [place] [address] COMPREHEN METABOLIC PANEL KANDACE ADAMS MD 01/04/2016 86925 ASSAY THYROID STIM HORMONE KANDACE ADAMS MD 01/04/2016 46184 COMPLETE CBC, AUTOMATED KANDACE ADAMS MD 01/04/2016 97799 METABOLIC PANEL TOTAL CA KANDACE ADAMS MD 01/24/2016 54700 METABOLIC PANEL TOTAL CA KANDACE ADAMS MD 03/30/2016 09813 COMPREHEN METABOLIC PANEL KANDACE ADAMS MD 05/21/2016 [id number] DILATION OF 1 COR ART WITH DRUG-ELUT INTRA, Quoc Davis MD 09/10/2016 [id number] INTRODUCE OTH THERAP SUBST IN PERIPH VEIN, Quoc Jennings MD 09/10/2016 [id number] MEASURE OF CARDIAC SAMPL PRESSURE, L HEART, Quoc Jennings MD 09/10/2016 [id number] FLUOROSCOPY OF MULT COR ART USING L OSM CONTRAST Quoc Raymond MD 09/10/2016 [id number] FLUOROSCOPY OF LEFT HEART USING LOW OSMOLAR CONTRA Quoc Raymond MD 09/10/2016 05010 COMPREHEN METABOLIC PANEL KANDACE ADAMS MD 11/30/2016 64731 LIPID PANEL KANDACE ADAMS MD 11/30/2016 Results [...] 34.8 G/DL 32.0-36.0 MCV 86.8 FL 80-94 [place] # 0.87 x10^3 0.0-0.8 [place] % 9.6 % 1.0-9.0 MPV 10.1 FL [...] Status Pt. Type Provider Facility Loc./Unit Complaint [id number] 09/10/2016 17:23:00 2015 14:10:00 DIS Inpatient Mandi CARABALLO, Quoc Cloud [facility]
[2017-02-07] MEDS ORDERED: LEVIMIR SQ (08:24)
[2017-02-07] MEDS ORDERED: AMLO10TA2 PO (08:25)
[2017-02-07] MEDS ORDERED: CLOP75TA33 PO (08:25)
[2017-02-07] MEDS ORDERED: TRIA1TAB3 PO (08:27)
[2017-02-07] MEDS ORDERED: ATEN50TA PO (08:27)
[2017-02-07] MEDS ORDERED: LISI-621 PO (08:28)
[2017-02-07] MEDS ORDERED: ATOR20TA59 PO (08:29)
[2017-02-07] MEDS ORDERED: CITA20TA9 PO (08:29)
[2017-02-07] MEDS ORDERED: ASPI-557 PO (08:30)
--- NOTE | 2017-02-07 09:00 | NUR ---
PROVIDER/C-COLLAR C-COLLAR REMOVED FROM PT BY DR. CAO, NEUROS REMAIN INTACT X4.
[2017-02-07] MEDS ORDERED: HYDR-4246 PO (09:04)
--- NOTE | 2017-02-07 09:04 | ERPDOC ---
Departure Disposition Decision Date: Feb 07, 2017 Disposition Decision Time: 09:01 Disposition: 01 DISCHARGED HOME, SELF-CARE Impression Impression Impression: Primary Impression: Right shoulder strain Encounter type: initial encounter Qualified Codes: S46.911A - Strain of unspecified muscle, fascia and tendon at shoulder and upper arm level, right arm , initial encounter Severity: Mild Condition: Improved Seen By: Physician only Referrals: KANDACE ADAMS MD (Family) 2 Days Patient Instructions: Shoulder Pain (ED), Shoulder Sprain (ED) Problems/Meds/Labs Reviewed?: Yes Medications reviewed and manag: Yes Follow up care ordered?: Yes Mental Status: Alert, Oriented Scripts Hydrocodone/Acetaminophen ([place] 5-325 Tablet) 5-325 Tablet 1 TAB PO Q4HR Y for PAIN, #20 TAB 0 Refills Prov: DIEGO CAOK Yajaira DO 02/07/17 HPI - General Medical General Chief Complaint: Shoulder Injury Stated Complaint: R SHOULDER INJ Time Seen by Provider: 07:25 Source: patient Exam Limitations: no limitations HPI - General Medical Initial Comments 56-year-old male presents to the emergency department with a chief complaint of a right shoulder injury. Patient noted onset of symptoms one day ago. Patient was standing on a short stepladder when he slipped and fell landing on his right shoulder. Patient denies striking his head or neck pain. Patient denies loss of consciousness. Patient denies any other injuries. Patient notes a moderate dull aching sensation to the right shoulder. There is no radiation of pain. Pain increases with movement and improves with rest and positioning. Patient denies any other complaints or associated symptoms. Patient was at home when the incident occurred. Symptoms have been persistent in nature since onset. Occurred At: home Onset: Constant Allergies: Coded Allergies: No Known Allergies (Unverified , 02/07/17) Past History Past Medical History Pt denies signifigant PMH Surgical History Denies Surgeries Family History Family History: Negative Social History Smoking Status: Never smoker Substance Use Type: does not use Alcohol Intake: none Review of Systems Constitutional Constitutional: DENIES: chills, fever Eyes General: DENIES: erythema, exudate, itching Lids/Accessories: DENIES: erythema, swelling Vision: DENIES: acuity, blurring ENMT Ears: DENIES: drainage, erythema Hearing: DENIES: hearing loss Balance: DENIES: ataxia, falling to one side Sinuses: DENIES: congestion, pain Nose: DENIES: nosebleeds, pain Mouth/Throat: DENIES: painful swallowing, sore throat Teeth: DENIES: pain Jaw: DENIES: pain Cardiovascular Cardiac: DENIES: chest pain, dyspnea on exertion Rhythm/Rate: DENIES: irregular beat, palpitations Vascular: DENIES: pedal edema, unilateral swelling Pulmonary Respiratory: DENIES: cough, dyspnea, pleuritic chest pain, sputum GI Upper Abdomen: DENIES: nausea, pain, vomiting Lower Abdomen: DENIES: diarrhea, pain General: DENIES: dysuria, pain Musculoskeletal General: joint pain, pain, tenderness Integumentary Skin: DENIES: itching, rash Neurological General: DENIES: headache, numbness, weakness Psychiatric Psychiatric: DENIES: emotional instability, suicidal ideation/attempt Endocrine Endocrine: DENIES: polydipsia, polyphagia Hematologic/Lymphatic Hematologic/Lymphatic: DENIES: frequent nosebleeds, lymphadenopathy Allergic/Immunological Allergic/Immunoligical: DENIES: allergic reactions, hives Physical Exam General General Nourishment: well nourished, well developed, appears stated age, no acute distress, adult General Body Habitus: well groomed Vitals and Pain First Documented Vital Signs Date Time Temp Pulse Resp B/P Pulse Ox O2 Delivery O2 Flow Rate FiO2 02/07/17 07:08 98.0 85 16 185/84 98 Room Air Weight: Kilograms: 174.100 Height (feet): 6 Height (inches): 3.00 Triage Pain Scale: RN VS reviewed by Provider: Yes Normal Exams: Head: Normocephalic w/o trauma Eyes: Pupils are PERRLA w/ EOMI, No scleral icterus, irritation, or foreign bodies noted ENMT: No facial trauma, nasal exudates, pharyngeal erythema, or exudates are noted Dental: No fractured, loose, or missing teeth noted Neck: Full range of motion, without adenopathy, JVD, bruits or thyromegaly Chest/Resp: Clear all clements, with good airflow, and symmetry bilaterally CV: Regular rate and rhythm, without murmur or gallop, Pulses 2+ all extremities, capillary refill, <2 seconds all ext., no pedal edema noted Abdomen: Bowel sounds positive, soft, non-tender, non-distended, no hepatosplenomegaly, masses or bruits noted Lymphatic: No lymphadenopathy, or lymphedema noted Musculoskeletal: No tenderness, or deformity noted, good range of motion, all extremities Integumentary: No rashes, hives, or bruising noted, hair and nails, without abnormality Neurologic: Patient is alert, and oriented, cranial nerves, motor/sensory/ cerebellar, exams w/o gross deficits, to observation Psychiatric: Patient exhibits, appropriate attention, emotion and affect Neck (brief) Neck: NOT FOUND: tenderness Musculoskeletal (brief) Comments Right shoulder - slightly decreased range of motion secondary to pain. Pulses are intact. Sensation intact. Capillary refill less than 2. No erythema. No edema. Diffusely tender to palpation. No focal bony tenderness. Skin is intact. No other tenderness in the right upper extremity. All other extremities are unremarkable. Differential Diagnoses Considering: Other (sprain/strain/fracture/contusion) Progress Results/Orders Orders Procedure Category Date Status Time Ct Head W/O Contrast CT 02/07/17 Resulted 07:29 Ct Cervical Spine W/O CT 02/07/17 Resulted Contrast 07:29 Shoulder Right 2-3 RAD 02/07/17 Resulted Views 07:29 Sling EDM 02/07/17 Transmitted 09:05 Acetaminophen PHA 02/07/17 Complete (Tylenol Extra 09:15 Medications Current ED Medications Acetaminophen (Tylenol Extra Strength) 1,000 mg O ONCE PO Last administered on 02/07/17t 09:18; Start 02/07/17 at 09:15; Stop 02/07/17 at 09:16; Status DC Progress Progress Imaging was discussed in detail with the patient and family and questions are answered. Patient was given acetaminophen with improvement of symptoms in the emergency Department. Patient was recommended to be placed in a sling but the patient declines a sling. Patient is discharged home in improved condition. Patient to follow up as instructed. Patient's return to the emergency department if his condition worsens or changes in any manner. Patient is in agreement with the current plan of management. Patient is to follow up as instructed. Xray Xray : Xray: Shoulder R Interpretation: Normal, Interpreted by Me, Reviewed Written Report CT CT : CT: Head no contrast Interpretation: Normal (cervical spine: Negative), Reviewed Written Report SALVADOR CAO DO Feb 07, 2017 09:04
[2017-02-07] MEDS ORDERED: ACETAMINOPHEN 500 MG TABLET PO ONE (09:15)
--- NOTE | 2017-02-07 09:20 | NUR ---
REFUSAL OF SLING PT REFUSED SLING ORDER, IS USING THE BIB OF HIS OVERALLS A SLING. PT'S STATE THEY ARE GOING TO CALL THEIR DOCTOR TOMORROW AND ARRANGE A ORTHOPEDIC APPOINTMENT AND IF THEY SUGGEST A SLING HE WILL GET ONE THERE.
[2017-02-07 09:22] VITALS: BP 148/88; PULSE 88; RESP 16; TEMP 98.6; O2SAT 99
--- NOTE | 2017-02-07 11:09 | DI ---
Indication: ITS.REASON: Recent fall with neck pain PROCEDURE: CT CERVICAL SPINE W/O CONTRAST: Encounter: Initial Comparison: None Technique: Axial CT images through the cervical spine were performed without contrast. Coronal and sagittal reformatted images were also obtained. Automated Exposure Control and Iterative Reconstruction dose reducing techniques were utilized. FINDINGS: The alignment of the cervical spine is straightened which could be positional or due to muscular spasm/strain. Multilevel degenerative changes are present. There is no evidence of acute fracture or subluxation of the cervical spine. The atlantoaxial articulation, dens, and upper cervical spine demonstrate no subluxation. Central canal stenosis at C5-C6 which appears at least moderate due to a disk osteophyte complex. There is also left foraminal stenosis at this level.The paraspinal soft tissues and spinal canal appear unremarkable. IMPRESSION: No acute traumatic abnormality of the cervical spine. There is a preliminary report by [facility]. .
--- NOTE | 2017-02-07 11:10 | DI ---
Indication: ITS.REASON: Recent fall with head injury and pain PROCEDURE: CT HEAD W/O CONTRAST: Encounter: Initial Comparison: None Technique: Axial CT images through the head were performed without contrast. Iterative Reconstruction dose reducing technique was utilized. FINDINGS: The ventricles are of normal size, shape, and configuration for the patient's age. There is no evidence of acute intracranial hemorrhage, midline displacement, or mass effect. The CT attenuation of the brain parenchyma is normal within the cerebellum, brain stem, and cerebral hemispheres. The tympanic cavities and mastoid air cells are free of appreciable disease. There are no definite fractures of the skull base, calvarium, or visualized portion of the midface. IMPRESSION: No CT evidence of acute traumatic intracranial injury. There is a preliminary report by [facility]. .
== END 2017-02-07 09:22 | disposition home or self-care (01) ==
LOC: ED 07:06
DX: S46.911A Strain of unspecified muscle, fascia and tendon at shoulder and upper arm level, right arm, initial encounter (principal); W11.XXXA Fall on and from ladder, initial encounter; Y93.9 Activity, unspecified; Y92.009 Unspecified place in unspecified non-institutional (private) residence as the place of occurrence of the external cause; Y99.8 Other external cause status
CPT/HCPCS: 70450; 72125; 73030; 99284; L0150